=== PATIENT | male | born 1950 | race Caucasian/White ===

== ENCOUNTER 2022-11-12 12:29 | Inpatient (IN) | payer OTHER ==
[~2022-11-12] VITALS: Ht 165.1 cm; Wt 69.1 kg
[2022-11-12 12:58] VITALS: BP_SYST 186; PULSE 74; RESP 16; TEMP 97.8; O2SAT 99
[2022-11-12 13:32] LABS: BASOPHILS % (AUTO) 0.8 % (0.0-2.0); EOSINOPHILS % (AUTO) 0.7 % (0.0-4.0); HEMATOCRIT 30.7 % (36-54); HEMOGLOBIN 10.2 g/dL (14.0-18.0); LYMPHOCYTES # (AUTO) 1.2 K/uL (1.0-5.5); LYMPHOCYTES % (AUTO) 21.7 % (20.5-51.5); MEAN CORPUSCULAR HEMOGLOBIN 32 pg (27-31); MEAN CORPUSCULAR HGB CONC 33 % (32-36); MEAN CORPUSCULAR VOLUME 95 fL (79.0-98.0); MONOCYTES # (AUTO) 0.3 K/uL (0.0-1.0); MONOCYTES % (AUTO) 5.5 % (1.7-9.3); NEUTROPHILS # (AUTO) 4.1 K/uL (1.8-7.7); NEUTROPHILS % (AUTO) 71.3 % (40.0-70.0); PLATELET COUNT (AUTO) 245 K/uL (130-430); RED BLOOD CELL COUNT(AUTO) 3.23 MIL/uL (4.2-6.2); RED CELL DISTRIBUTION WIDTH 13.9 % (9.0-15.0); WHITE BLOOD COUNT (AUTO) 5.7 K/uL (4.8-10.8)
[2022-11-12 13:54] LABS: ALANINE AMINOTRANSFERASE 13 U/L (12-78); ALBUMIN 3.8 g/dL (3.4-4.8); ANION GAP 9 (5-15); ASPARTATE AMINOTRANSFERASE 18 U/L (10-37); CALCIUM 9.2 mg/dL (8.4-11.0); CARBON DIOXIDE 23 mmol/L (23-29); CHLORIDE 105 mmol/L (98-107); CREATININE 3.91 mg/dL (0.55-1.30); GLUCOSE 100 mg/dL (74-106); POTASSIUM 5.7 mmol/L (3.5-5.1); SODIUM SERUM 137 mmol/L (136-145); TOTAL BILIRUBIN 0.4 mg/dL (0.0-1.0); TOTAL PROTEIN, SERUM 7.2 g/dL (6.4-8.3); UREA NITROGEN, BLOOD 55 mg/dL (8-21)
[2022-11-12] MEDS ORDERED: LORazepam 1 MG TABLET PO ONE (14:30)
[2022-11-12] MEDS ORDERED: SODIUM ZIRCONIUM CYCLOSILICATE 10 GM POWD.PACK PO ONE (14:30)
[2022-11-12] MEDS ORDERED: MORPHINE 2 MG/ML INJ. SYRINGE IVP PRN (15:30)
[2022-11-12] MEDS ORDERED: ONDANSETRON HCL 4 MG/2 ML VIAL IVP PRN (15:30)
[2022-11-12] MEDS ORDERED: MORPHINE 4 MG INJ. 4 MG/ML VIAL IVP PRN (15:30)
[2022-11-12] MEDS ORDERED: LISI-209 PO (15:48)
[2022-11-12] MEDS ORDERED: PRAV20TA59 PO (15:48)
[2022-11-12] MEDS: D5/0.45 NS 1,000 ML IV SCH (16:16)
[2022-11-12 16:19] LABS: ANION GAP 6 (5-15); CALCIUM 9.1 mg/dL (8.4-11.0); CARBON DIOXIDE 26 mmol/L (23-29); CHLORIDE 106 mmol/L (98-107); CREATININE 4.02 mg/dL (0.55-1.30); GLUCOSE 127 mg/dL (74-106); SODIUM SERUM 138 mmol/L (136-145); UREA NITROGEN, BLOOD 57 mg/dL (8-21)
[2022-11-12] MEDS ORDERED: NACL 0.9% 1,000 ML IV ONE (16:45)
[2022-11-12] MEDS ORDERED: DEXTROSE 50% JECT 50 ML DISP.SYRIN IVP ONE (16:45)
[2022-11-12] MEDS ORDERED: INSULIN REGULAR, HUMAN 10 UNITS/0.1 ML, 3 ML VIAL IVP ONE (16:45)
[2022-11-12] MEDS ORDERED: SODIUM BICARBONATE 8.4% JECT 50 MEQ/50 ML SYRINGE IVP ONE (16:45)
[2022-11-12] MEDS ORDERED: SODIUM POLYSTYRENE SULFONATE 15 GM/60 ML UDBTL PO ONE (16:45)
[2022-11-12 21:23] VITALS: BP_SYST 168; PULSE 71; RESP 16; TEMP 97.8
[2022-11-12 22:05] VITALS: O2SAT 97
[2022-11-13] VITALS (7 sets, daily range): BP systolic 146–163; PULSE 68–78; RESP 14–18; TEMP 97.3–98.6; O2SAT 96–98
[2022-11-13 04:23] LABS: BASOPHILS % (AUTO) 0.5 % (0.0-2.0); EOSINOPHILS # (AUTO) 0.1 K/uL (0.0-0.4); EOSINOPHILS % (AUTO) 1.3 % (0.0-4.0); HEMOGLOBIN 10.3 g/dL (14.0-18.0); LYMPHOCYTES # (AUTO) 1.9 K/uL (1.0-5.5); LYMPHOCYTES % (AUTO) 24.7 % (20.5-51.5); MEAN CORPUSCULAR HEMOGLOBIN 32 pg (27-31); MEAN CORPUSCULAR HGB CONC 33 % (32-36); MEAN CORPUSCULAR VOLUME 96 fL (79.0-98.0); MONOCYTES # (AUTO) 0.5 K/uL (0.0-1.0); MONOCYTES % (AUTO) 6.8 % (1.7-9.3); NEUTROPHILS # (AUTO) 5.2 K/uL (1.8-7.7); NEUTROPHILS % (AUTO) 66.7 % (40.0-70.0); PLATELET COUNT (AUTO) 237 K/uL (130-430); RED BLOOD CELL COUNT(AUTO) 3.25 MIL/uL (4.2-6.2); RED CELL DISTRIBUTION WIDTH 13.5 % (9.0-15.0); WHITE BLOOD COUNT (AUTO) 7.8 K/uL (4.8-10.8)
[2022-11-13 05:03] LABS: ANION GAP 7 (5-15); CALCIUM 8.4 mg/dL (8.4-11.0); CARBON DIOXIDE 25 mmol/L (23-29); CHLORIDE 109 mmol/L (98-107); CREATININE 3.44 mg/dL (0.55-1.30); GLUCOSE 120 mg/dL (74-106); POTASSIUM 4.6 mmol/L (3.5-5.1); SODIUM SERUM 141 mmol/L (136-145); UREA NITROGEN, BLOOD 50 mg/dL (8-21)
[2022-11-13] MEDS: LISINOPRIL 10 MG TABLET (PRINIVIL) PO SCH ×2 (06:18→09:00)
[2022-11-13] MEDS: HYDROCHLOROTHIAZIDE 12.5 MG CAPSULE (HCTZ) PO SCH ×2 (06:18→09:00)
[2022-11-13] MEDS: D5/0.45 NS 1,000 ML IV SCH ×2 (06:25→12:00)
[2022-11-13] MEDS ORDERED: FINASTERIDE 5 MG TABLET (PROSCAR) PO ONE (08:45)
[2022-11-13] MEDS ORDERED: TAMSULOSIN HCL 0.4 MG CAP PO ONE (08:45)
[2022-11-13] MEDS ORDERED: TOLTERODINE TARTRATE ER 2 MG CAP.ER.24H PO SCH (09:00)
[2022-11-13] MEDS: oxyBUTYnin chloride 5 MG TABLET PO SCH ×3 (09:40→20:58)
[2022-11-13] MEDS ORDERED: NALOXONE HCL 0.4 MG/ML AMP (NARCAN) IVP PRN ×2 (19:45)
[2022-11-13] MEDS ORDERED: ACETAMINOPHEN 325 MG TABLET PO PRN ×2 (19:45)
[2022-11-13] MEDS ORDERED: HYDROcodone/ACETAMIN 5-325 MG TAB (NORCO/ VICODIN) PO PRN (19:45)
[2022-11-13] MEDS ORDERED: LORazepam 2 MG/ML VIAL IVP PRN (19:45)
[2022-11-13] MEDS ORDERED: ONDANSETRON HCL 4 MG/2 ML VIAL IVP PRN (19:45)
[2022-11-13] MEDS: ATORVASTATIN 10 MG TABLET PO SCH (20:58)
[2022-11-13] MEDS ORDERED: PRAVASTATIN SODIUM 20 MG TABLET (PRAVACHOL) PO SCH (21:00)
[2022-11-14 00:04] LABS: BILIRUBIN,URINE NEGATIVE (NEGATIVE); BLOOD, URINE 3+ (NEGATIVE); CLARITY/URINE SL CLOUDY (CLEAR); COLOR,URINE YELLOW (YELLOW); GLUCOSE,URINE NEGATIVE (NEGATIVE); KETONES,URINE NEGATIVE (NEGATIVE); LEUKOCYTE ESTERASE ,URINE 1+ (NEGATIVE); NITRITE, URINE NEGATIVE (NEGATIVE); PROTEIN URINE 1+ (NEGATIVE); UROBILINOGEN,URINE 0.2 (0.2-1.0)
[2022-11-14 00:40] VITALS: BP_SYST 145; PULSE 67; RESP 15; TEMP 98; O2SAT 97
[2022-11-14 00:52] LABS: BACTERIA,URINE FEW /HPF (None Seen); RBC,URINE 80-100 /HPF (0-3)
[2022-11-14] MEDS: D5/0.45 NS 1,000 ML IV SCH ×3 (00:55→18:00)
[2022-11-14 06:21] LABS: BASOPHILS % (AUTO) 0.4 % (0.0-2.0); EOSINOPHILS # (AUTO) 0.1 K/uL (0.0-0.4); EOSINOPHILS % (AUTO) 1.8 % (0.0-4.0); HEMATOCRIT 30.7 % (36-54); HEMOGLOBIN 10.5 g/dL (14.0-18.0); LYMPHOCYTES % (AUTO) 25.4 % (20.5-51.5); MEAN CORPUSCULAR HEMOGLOBIN 32 pg (27-31); MEAN CORPUSCULAR HGB CONC 34 % (32-36); MEAN CORPUSCULAR VOLUME 94 fL (79.0-98.0); MONOCYTES # (AUTO) 0.6 K/uL (0.0-1.0); MONOCYTES % (AUTO) 7.9 % (1.7-9.3); NEUTROPHILS # (AUTO) 5.1 K/uL (1.8-7.7); NEUTROPHILS % (AUTO) 64.5 % (40.0-70.0); PLATELET COUNT (AUTO) 230 K/uL (130-430); RED BLOOD CELL COUNT(AUTO) 3.26 MIL/uL (4.2-6.2); RED CELL DISTRIBUTION WIDTH 13.5 % (9.0-15.0); WHITE BLOOD COUNT (AUTO) 7.9 K/uL (4.8-10.8)
[2022-11-14 08:00] VITALS: BP_SYST 151; PULSE 79; RESP 17; TEMP 96.8; O2SAT 97
[2022-11-14 08:36] LABS: ALANINE AMINOTRANSFERASE 12 U/L (12-78); ALBUMIN 3.1 g/dL (3.4-4.8); ANION GAP 6 (5-15); ASPARTATE AMINOTRANSFERASE 14 U/L (10-37); CALCIUM 8.7 mg/dL (8.4-11.0); CARBON DIOXIDE 26 mmol/L (23-29); CHLORIDE 104 mmol/L (98-107); CREATININE 2.85 mg/dL (0.55-1.30); GLUCOSE 105 mg/dL (74-106); PHOSPHORUS 4.4 mg/dL (2.7-4.5); POTASSIUM 4.2 mmol/L (3.5-5.1); SODIUM SERUM 136 mmol/L (136-145); TOTAL BILIRUBIN 0.4 mg/dL (0.0-1.0); TOTAL PROTEIN, SERUM 6.7 g/dL (6.4-8.3); UREA NITROGEN, BLOOD 38 mg/dL (8-21)
[2022-11-14] MEDS: FINASTERIDE 5 MG TABLET (PROSCAR) PO SCH (09:22)
[2022-11-14] MEDS: TAMSULOSIN HCL 0.4 MG CAP PO SCH (09:22)
[2022-11-14] MEDS: oxyBUTYnin chloride 5 MG TABLET PO SCH ×3 (09:22→21:03)
[2022-11-14] MEDS: HYDROCHLOROTHIAZIDE 12.5 MG CAPSULE (HCTZ) PO SCH (09:22)
[2022-11-14 11:13] LABS: URINE SODIUM, RANDOM 93 mmol/L (40-220)
[2022-11-14 11:30] VITALS: BP_SYST 125; PULSE 78; RESP 19; TEMP 98; O2SAT 98
[2022-11-14 14:21] VITALS: O2SAT 97
[2022-11-14 16:30] VITALS: BP_SYST 132; PULSE 83; RESP 19; TEMP 99; O2SAT 95
[2022-11-14] MEDS: ATORVASTATIN 10 MG TABLET PO SCH (21:03)
[2022-11-14] MEDS: HYDROcodone/ACETAMIN 10-325 MG TAB PO PRN (21:09)
[2022-11-15 00:18] VITALS: BP_SYST 126; PULSE 64; RESP 19; TEMP 97.3; O2SAT 97
[2022-11-15] MEDS: D5/0.45 NS 1,000 ML IV SCH ×2 (04:00→14:00)
[2022-11-15 05:32] LABS: ANION GAP 8 (5-15); CALCIUM 8.6 mg/dL (8.4-11.0); CARBON DIOXIDE 28 mmol/L (23-29); CHLORIDE 102 mmol/L (98-107); CREATININE 2.96 mg/dL (0.55-1.30); GLUCOSE 96 mg/dL (74-106); PHOSPHORUS 4.6 mg/dL (2.7-4.5); POTASSIUM 4.4 mmol/L (3.5-5.1); SODIUM SERUM 138 mmol/L (136-145); UREA NITROGEN, BLOOD 40 mg/dL (8-21)
[2022-11-15 05:33] LABS: BASOPHILS % (AUTO) 0.3 % (0.0-2.0); EOSINOPHILS # (AUTO) 0.3 K/uL (0.0-0.4); EOSINOPHILS % (AUTO) 3.3 % (0.0-4.0); HEMATOCRIT 31.3 % (36-54); HEMOGLOBIN 10.5 g/dL (14.0-18.0); MEAN CORPUSCULAR HEMOGLOBIN 32 pg (27-31); MEAN CORPUSCULAR HGB CONC 34 % (32-36); MEAN CORPUSCULAR VOLUME 95 fL (79.0-98.0); MONOCYTES # (AUTO) 0.6 K/uL (0.0-1.0); MONOCYTES % (AUTO) 7.8 % (1.7-9.3); NEUTROPHILS # (AUTO) 4.2 K/uL (1.8-7.7); NEUTROPHILS % (AUTO) 51.6 % (40.0-70.0); PLATELET COUNT (AUTO) 225 K/uL (130-430); RED CELL DISTRIBUTION WIDTH 13.9 % (9.0-15.0); WHITE BLOOD COUNT (AUTO) 8.2 K/uL (4.8-10.8)
[2022-11-15 08:06] LABS: % FREE PSA 17.8 % (.); FREE PSA 0.32 ng/mL; PROSTATE SPECIFIC AG TOTAL 1.8 ng/mL (0.0-4.0)
[2022-11-15 08:30] VITALS: BP_SYST 169; PULSE 74; RESP 18; TEMP 96; O2SAT 98
[2022-11-15] MEDS: oxyBUTYnin chloride 5 MG TABLET PO SCH ×3 (09:25→20:56)
[2022-11-15] MEDS: HYDROCHLOROTHIAZIDE 12.5 MG CAPSULE (HCTZ) PO SCH (09:26)
[2022-11-15] MEDS: TAMSULOSIN HCL 0.4 MG CAP PO SCH (09:26)
[2022-11-15] MEDS ORDERED: BISACODYL 5 MG TABLET.DR (DULCOLAX) PO PRN (09:30)
[2022-11-15] MEDS: FINASTERIDE 5 MG TABLET (PROSCAR) PO SCH (09:36)
[2022-11-15] MEDS ORDERED: POLYETHYLENE GLYCOL 3350, 17 GM/ POWD.PACK PO ONE (10:00)
[2022-11-15 10:50] VITALS: O2SAT 98
[2022-11-15 12:33] VITALS: BP_SYST 135; PULSE 75; RESP 17; TEMP 96.9; O2SAT 98
[2022-11-15] MEDS ORDERED: OXYB5TAB16 PO (19:31)
[2022-11-15] MEDS ORDERED: FINA5TAB11 PO (19:31)
[2022-11-15] MEDS ORDERED: HYDR12.585 PO (19:31)
[2022-11-15] MEDS ORDERED: TAMS0.4C96 PO (19:31)
[2022-11-15 20:00] VITALS: O2SAT 98
[2022-11-15] MEDS: ATORVASTATIN 10 MG TABLET PO SCH (20:56)
[2022-11-15] MEDS: HYDROcodone/ACETAMIN 10-325 MG TAB PO PRN (20:56)
[2022-11-15 21:03] VITALS: BP_SYST 138; PULSE 86; RESP 16; TEMP 97.5; O2SAT 96
[2022-11-16] MEDS ORDERED: POLYETHYLENE GLYCOL 3350, 17 GM/ POWD.PACK PO SCH (09:00)
== END 2022-11-15 21:30 | disposition home or self-care (01) | DRG 699 ==
LOC: SED 12:29 → STU 15:29 → SMU 11-13 15:46
PROVIDERS: ADMIT Specialist; ATTEND Specialist
DX: T83.9XXA Unspecified complication of genitourinary prosthetic device, implant and graft, initial encounter (principal); N13.30 Unspecified hydronephrosis; N13.8 Other obstructive and reflux uropathy; N17.9 Acute kidney failure, unspecified; R31.9 Hematuria, unspecified; D63.1 Anemia in chronic kidney disease; E78.5 Hyperlipidemia, unspecified; E83.39 Other disorders of phosphorus metabolism; E87.5 Hyperkalemia; Y65.8 Other specified misadventures during surgical and medical care; E88.09 Other disorders of plasma-protein metabolism, not elsewhere classified; N18.30 Chronic kidney disease, stage 3 unspecified; I12.9 Hypertensive chronic kidney disease with stage 1 through stage 4 chronic kidney disease, or unspecified chronic kidney disease
CPT/HCPCS: 36415; 76376; 76770; 80048; 80053; 81000; 82570; 83735; 84100; 84153; 84302; 85025; 87086; 93005; 96361; 96374; 96375; 99291; G0378; J1815